=== PATIENT | female | born 1970 | race Caucasian/White ===

== ENCOUNTER → 2017-12-29 | Outpatient (CLI) | payer MEDICAID | LOC: CIMAGING 17:23 | PROVIDERS: ATTEND Internal Medicine | DX: R22.41 Localized swelling, mass and lump, right lower limb (principal); R93.6 Abnormal findings on diagnostic imaging of limbs | CPT/HCPCS: 93971-PO ==

== ENCOUNTER → 2018-01-08 | Outpatient (CLI) | payer MEDICAID | LOC: FIMAGING 12:30 | PROVIDERS: ATTEND Internal Medicine | DX: Z12.31 Encounter for screening mammogram for malignant neoplasm of breast (principal) ==

== ENCOUNTER → 2018-07-03 | Outpatient (CLI) | payer MEDICAID | LOC: FIMAGING 09:03 | PROVIDERS: ATTEND Internal Medicine | DX: K76.0 Fatty (change of) liver, not elsewhere classified (principal); R16.0 Hepatomegaly, not elsewhere classified | CPT/HCPCS: 76700-PO ==

== ENCOUNTER → 2019-02-25 | Outpatient (CLI) | payer MEDICAID | LOC: CIMAGING 14:53 ==